=== PATIENT | female | born 1985 | race Two or more races ===

== ENCOUNTER 2021-12-08 06:54 | Inpatient (IN) | payer OTHER ==
[~2021-12-08] VITALS: Ht 160 cm; Wt 88.9 kg
[2021-12-08] MEDS ORDERED: PRENATAL TABLE1 EAC1 PO (07:13)
[2021-12-08] MEDS ORDERED: ECOTRIN81 MG PO (07:14)
[2021-12-09] MEDS ORDERED: FUSION PLUS CA1 EACH (13:58)
== END 2021-12-10 11:20 | disposition home or self-care (01) | DRG 807 ==
LOC: OBS/DEL 06:54 → OB/GYN 07:28 → LDR 07:28 → OB/GYN 17:29
PROVIDERS: ADMIT Specialist; ATTEND Specialist
PROC: 10E0XZZ Delivery of Products of Conception, External Approach (ICD-10-PCS; principal; 2021-12-08)
PROC: 4A1HXCZ Monitoring of Products of Conception, Cardiac Rate, External Approach (ICD-10-PCS; 2021-12-08)
DX: O80 Encounter for full-term uncomplicated delivery (principal); Z37.0 Single live birth; Z3A.38 38 weeks gestation of pregnancy; Z20.822 Contact with and (suspected) exposure to COVID-19